=== PATIENT | male | born 1950 | race African-American/Black ===

== ENCOUNTER 2017-01-02 20:21 | Emergency (ER) | payer MEDICARE ==
[~2017-01-02] VITALS: Ht 180.3 cm; Wt 90.7 kg
[~2017-01-02 20:21] MED LIST: AMLO10TA2 PO; ASPI-252 PO; CARV25TA2 PO; DIVA250T4 PO; ENAL25PO MC; ENAL5TAB PO; FURO40TA4 PO; HYDR-2869 PO; Hydralazine Hcl PO; Hydrocodone/Acetaminophen PO; INSU100C SQ; INSU100I11 SQ; INSU100I13 SQ; INSU100I27 SQ; INSU100V8 SQ; LIPITOR80 MG PO; LISI-334 PO
--- NOTE | 2017-01-02 20:50 | PHYS DOC ---
Past Medical History Past Medical History: CAD, CVA, Diabetes-Type II, Hypertension Past Surgical History: Other Additional Past Surgical Histo: TOE AMPUTATION LEFT FOOT Alcohol Use: None Drug Use: None Adult General Chief Complaint Chief Complaint: CATHETER CHANGE HPI HPI 66-year-old male dialysis patient presents secondary to concern over the dialysis catheter in his left upper chest. Apparently during dialysis they thought the catheter was loose and they sent him here to have the catheter removed. Patient denies any pain around the catheter site or any other issues with the catheter. He's states it is not been bleeding around the catheter. [] Review of Systems Review of Systems Constitutional: Denies fever or chills [] Eyes: Denies change in visual acuity, redness, or eye pain [] HENT: Denies nasal congestion or sore throat [] Respiratory: Denies cough or shortness of breath [] Cardiovascular: No additional information not addressed in HPI [] GI: Denies abdominal pain, nausea, vomiting, bloody stools or diarrhea [] : Denies dysuria or hematuria [] Musculoskeletal: Denies back pain or joint pain [] Integument: Denies rash or skin lesions [] Neurologic: Denies headache, focal weakness or sensory changes [] Endocrine: Denies polyuria or polydipsia [] Allergies Allergies Allergies Coded Allergies Type Severity Reaction Last Updated Verified No Known Drug Allergies 12/06/15 No Physical Exam Physical Exam Constitutional: Well developed, well nourished, no acute distress, non-toxic appearance. [] HENT: Normocephalic, atraumatic, bilateral external ears normal, oropharynx moist, no oral exudates, nose normal. [] Eyes: PERRLA, EOMI, conjunctiva normal, no discharge. [] Neck: Normal range of motion, no tenderness, supple, no stridor. [] Cardiovascular:Heart rate regular rhythm, no murmur [] Lungs & Thorax: Bilateral breath sounds clear to auscultation [] Abdomen: Bowel sounds normal, soft, no tenderness, no masses, no pulsatile masses. [] Skin: Dialysis catheter left upper chest with no surrounding erythema fullness or tenderness. The catheter appears to be well seated in the skin. [] Back: No tenderness, no CVA tenderness. [] Extremities: No tenderness, no cyanosis, no clubbing, ROM intact, no edema. [] Neurologic: Alert and oriented X 3, normal motor function, normal sensory function, no focal deficits noted. [] Psychologic: Affect normal, judgement normal, mood normal. [] Current Patient Data Vital Signs Vital Signs Date Time Temp Pulse Resp B/P Pulse Ox O2 Delivery O2 Flow Rate FiO2 01/02/17 21:15 80 18 163/72 98 Room Air 01/02/17 20:40 98.8 98.8 EKG EKG [] Radiology/Procedures Radiology/Procedures [] Course & Med Decision Making Course & Med Decision Making Pertinent Labs and Imaging studies reviewed. (See chart for details) [ED course: Evaluation reveals 66-year-old male with a catheter in his left upper chest. This catheter did not appear to be loose in any way or need to be immediately removed.] Dragon Disclaimer Dragon Disclaimer This electronic medical record was generated, in whole or in part, using a voice recognition dictation system. Departure Departure Impression: Primary Impression: Complications, dialysis, catheter, mechanical Disposition: 01 HOME, SELF-CARE Condition: STABLE Referrals: NIKKY OL (PCP) Patient Instructions: Central Line Placement, Dialysis Access, Instructions Additional Instructions: Follow with your weight inspector this week for recheck. Return to the emergency department should she develop any bleeding around the catheter site or redness tenderness or purulent drainage. Problem Qualifiers Primary Impression: Complications, dialysis, catheter, mechanical Encounter type: initial encounter Qualified Code: T82.49XA - Other complication of vascular dialysis catheter, initial encounter KASEY SOUZA DO Jan 02, 2017 20:50
[2017-01-02 21:15] VITALS: BP 163/72
--- NOTE | 2017-01-03 07:53 | RAD ---
Indication: Dialysis catheter. Technique: Upright portable chest radiograph was obtained. Comparison is from January 21, 2016. Findings: Dialysis catheter placed via left IJ approach is noted. No pneumothorax is apparent. The lungs are clear. The heart is not enlarged. There is no heart failure. Bony structures are intact. Impression: Dialysis catheter placed via left IJ approach is in position.
== END 2017-01-02 21:25 | disposition home or self-care (01) ==
LOC: ER 20:21
DX: T82.49XA Other complication of vascular dialysis catheter, initial encounter (principal); I25.10 Atherosclerotic heart disease of native coronary artery without angina pectoris; E11.9 Type 2 diabetes mellitus without complications; I10 Essential (primary) hypertension; Z86.73 Personal history of transient ischemic attack (TIA), and cerebral infarction without residual deficits; Z99.2 Dependence on renal dialysis; Y84.6 Urinary catheterization as the cause of abnormal reaction of the patient, or of later complication, without mention of misadventure at the time of the procedure; Y92.89 Other specified places as the place of occurrence of the external cause
CPT/HCPCS: 71010; 99283

== ENCOUNTER 2017-03-15 00:06 | Emergency (ER) | payer MEDICARE ==
[2017-03-15] MEDS ORDERED: NALOXONE 0.4 MG/ML VIAL. ONE (00:55)
[2017-03-15 01:01] LABS: BASO % 1 % (0-3); EOS % 4 % (0-3); HEMATOCRIT 31.4 % (39.0-53.0); HEMOGLOBIN 10.1 g/dL (13.0-17.5); LYMPH # 0.8 x10^3/uL (1.0-4.8); LYMPH % 13 % (24-48); MEAN CORPUSCULAR HEMOGLOBIN 30 pg (25-35); MEAN CORPUSCULAR HGB CONC 32 g/dL (31-37); MEAN CORPUSCULAR VOLUME 93 fL (79-100); MONO % 9 % (0-9); NEUT % 73 % (31-73); PLATELET COUNT 201 x10^3/uL (140-400); RED CELL DISTRIBUTION WIDTH 15.5 % (11.5-14.5); WHITE BLOOD COUNT 6.3 x10^3/uL (4.0-11.0)
[2017-03-15 01:08] LABS: CALCIUM 8.4 mg/dL (8.5-10.1); CREATININE 5.5 mg/dL (0.7-1.3); GFR 12.6; POTASSIUM 3.5 mmol/L (3.5-5.1)
[2017-03-15 01:14] LABS: ALBUMIN/GLOBULIN RATIO 0.7 (1.0-1.7); TOTAL BILIRUBIN 0.3 mg/dL (0.2-1.0); TOTAL PROTEIN 7.2 g/dL (6.4-8.2)
[2017-03-15] MEDS ORDERED: NALOXONE 0.4 MG/ML VIAL. IV ONE (01:15)
[2017-03-15 02:30] VITALS: BP 117/56
--- NOTE | 2017-03-15 02:43 | PHYS DOC ---
Past Medical History Past Medical History: CAD, CVA, Diabetes-Type II, Hypertension, Renal Disease Past Surgical History: Other Additional Past Surgical Histo: TOE AMPUTATION LEFT FOOT, Left chest dialysis shunt, L AV fistula Alcohol Use: None Drug Use: None Adult General Chief Complaint Chief Complaint: HYPOGLYCEMIA HPI HPI Patient is a 67 year old gentleman with a history significant for end-stage renal disease, hypertension, diabetes who presents here today secondary to hypoglycemia. Patient does take insulin at home. Patient's blood sugar was 16. EMS was called by his girlfriend. Upon arrival EMS gave him one amp of D50 and his blood sugar went up to 70. Patient was given a second amp of D50 and his blood sugar went to 170. Upon arrival to ER patient is somewhat somnolent however he is alert awake and oriented 3 and is eating in the ER. Patient is currently without any complaints. Patient reports she's been eating and drinking well. Patient denies any fevers shakes chills nausea vomiting diarrhea chest pain shortness of breath cough cold runny nose. Patient reports she's been compliant with medications. Patient denies any change in his insulin doses. Patient thinks she might have given himself extra insulin today by accident. Patient's physical examination ER is unremarkable. He is alert awake and oriented 3. He is eating applesauce, a sandwich, and chips as well as drinking liquids without any difficulty. Patient's ER course was significant for following his blood sugar and giving him oral intake to supplement his blood sugar. Patient's but she remained stable in the ER. He was monitored here for several hours and was discharged home in stable condition and instructed to hold off taking any further insulin for the next 8-12 hours until he is reevaluated by his primary care physician. Review of Systems Review of Systems Constitutional: Denies fever or chills [] Eyes: Denies change in visual acuity, redness, or eye pain [] All other review systems are negative except as documented in history of present illness portion. Current Medications Current Medications Current Medications Medications (Trade) Dose Ordered Sig/Wilder Start Time Stop Time Status Last Admin Dose Admin Naloxone HCl (Narcan) 0.4 mg 1X ONCE 03/15/17 01:15 03/15/17 01:16 DC 03/15/17 01:00 0.4 MG Allergies Allergies Allergies Coded Allergies Type Severity Reaction Last Updated Verified No Known Drug Allergies 12/06/15 No Physical Exam Physical Exam Constitutional: Well developed, well nourished, no acute distress, non-toxic appearance. [] HENT: Normocephalic, atraumatic, bilateral external ears normal, oropharynx moist, no oral e Eyes: PERRLA, EOMI, conjunctiva normal, no discharge. [] Neck: Normal range of motion, no tenderness, supple, no stridor. [] Cardiovascular:Heart rate regular rhythm, Lungs & Thorax: Bilateral breath sounds clear to auscultation [] Abdomen: Bowel sounds normal, soft, no tenderness, no masses, Skin: Warm, dry, no erythema Back: No tenderness, no CVA tenderness. [] Extremities: No tenderness, no cyanosis, no clubbing, ROM intact, no edema. [] Neurologic: Alert and oriented X 3, normal motor function, normal sensory function, no focal deficits noted. [] Psychologic: Affect normal, judgement normal, mood normal. [] Current Patient Data Vital Signs Vital Signs Date Time Temp Pulse Resp B/P Pulse Ox O2 Delivery O2 Flow Rate FiO2 03/15/17 02:30 58 16 117/56 96 Room Air 03/15/17 00:18 97.5 97.5 Lab Values Laboratory Tests Test 03/15/17 00:40 03/15/17 00:45 03/15/17 01:25 03/15/17 02:23 White Blood Count 6.3x10^3/uL (4.0-11.0) Red Blood Count 3.40x10^6/uL (4.30-5.70) L Hemoglobin 10.1g/dL (13.0-17.5) L Hematocrit 31.4% (39.0-53.0) L Mean Corpuscular Volume 93fL (79-100) Mean Corpuscular Hemoglobin 30pg (25-35) Mean Corpuscular Hemoglobin Concent 32g/dL (31-37) Red Cell Distribution Width 15.5% (11.5-14.5) H Platelet Count 201x10^3/uL (140-400) Neutrophils (%) (Auto) 73% (31-73) Lymphocytes (%) (Auto) 13% (24-48) L Monocytes (%) (Auto) 9% (0-9) Eosinophils (%) (Auto) 4% (0-3) H Basophils (%) (Auto) 1% (0-3) Neutrophils # (Auto) 4.6x10^3uL (1.8-7.7) Lymphocytes # (Auto) 0.8x10^3/uL (1.0-4.8) L Monocytes # (Auto) 0.6x10^3/uL (0.0-1.1) Eosinophils # (Auto) 0.3x10^3/uL (0.0-0.7) Basophils # (Auto) 0.0x10^3/uL (0.0-0.2) Sodium Level 138mmol/L (136-145) Potassium Level 3.5mmol/L (3.5-5.1) Chloride Level 104mmol/L (98-107) Carbon Dioxide Level 24mmol/L (21-32) Anion Gap 10 (6-14) Blood Urea Nitrogen 21mg/dL (8-26) Creatinine 5.5mg/dL (0.7-1.3) H Estimated GFR (Cockcroft-Gault) 12.6 BUN/Creatinine Ratio 4 (6-20) L Glucose Level 109mg/dL (70-99) H Calcium Level 8.4mg/dL (8.5-10.1) L Total Bilirubin 0.3mg/dL (0.2-1.0) Aspartate Amino Transferase (AST) 23U/L (15-37) Alanine Aminotransferase (ALT) 23U/L (16-63) Alkaline Phosphatase 86U/L (46-116) Total Protein 7.2g/dL (6.4-8.2) Albumin 3.0g/dL (3.4-5.0) L Albumin/Globulin Ratio 0.7 (1.0-1.7) L Glucose (Fingerstick) 106mg/dL (70-99) H 109mg/dL (70-99) H 135mg/dL (70-99) H Laboratory Tests 03/15/17 00:40 Laboratory Tests 03/15/17 00:40 EKG EKG [] Radiology/Procedures Radiology/Procedures [] Course & Med Decision Making Course & Med Decision Making Pertinent Labs and Imaging studies reviewed. (See chart for details) [] Dragon Disclaimer Dragon Disclaimer This electronic medical record was generated, in whole or in part, using a voice recognition dictation system. Departure Departure Impression: Primary Impression: Hypoglycemia Additional Impression: Chronic renal failure Disposition: HOME, SELF-CARE Condition: IMPROVED Referrals: NIKKY LO (PCP) Patient Instructions: Hypoglycemia (Low Blood Sugar) Additional Instructions: Hold your insulin dose for the next 8 hours. Resume his usual dose after 8 hours. Problem Qualifiers GERARD FRANCOIS MD Mar 15, 2017 02:43
== END 2017-03-15 03:00 | disposition home or self-care (01) ==
LOC: ER 00:06
DX: E11.649 Type 2 diabetes mellitus with hypoglycemia without coma (principal); E11.22 Type 2 diabetes mellitus with diabetic chronic kidney disease; I12.0 Hypertensive chronic kidney disease with stage 5 chronic kidney disease or end stage renal disease; N18.6 End stage renal disease; I25.10 Atherosclerotic heart disease of native coronary artery without angina pectoris; Z89.422 Acquired absence of other left toe(s); Z86.73 Personal history of transient ischemic attack (TIA), and cerebral infarction without residual deficits; Z79.4 Long term (current) use of insulin
CPT/HCPCS: 36415; 80053; 82947; 85027; 96374; 99284; J2310

== ENCOUNTER 2017-05-30 22:18 | Emergency (ER) | payer MEDICARE ==
[~2017-05-30] VITALS: Ht 180.3 cm; Wt 115.7 kg
[2017-05-30 22:57] VITALS: BP 104/56
--- NOTE | 2017-05-30 22:58 | PHYS DOC ---
Past Medical History Past Medical History: CAD, CVA, Diabetes-Type II, Hypertension, Renal Disease Past Surgical History: Other Additional Past Surgical Histo: TOE AMPUTATION LEFT FOOT, Left chest dialysis shunt, L AV fistula Alcohol Use: None Drug Use: None Adult General Chief Complaint Chief Complaint: HYPERGLYCEMIA HPI HPI Patient is a 67 year old male who presents with hyperglycemia. The patient reports blood glucose of 500 at home. He has history of diabetes for which she takes NovoLog and Lantus, reports compliance with medications. In fact after having elevated blood glucose at home he took 13 units of NovoLog and 10 units of Lantus. He states his blood glucoses moderately well controlled, usually less than 200. Today after dialysis he stopped to eat honey buns and when he arrived home his glucose was significantly elevated. He reports increased thirst, makes minimal urine & hasn't noticed increased urine output or frequency. He denies fevers/chills, chest pain, shortness of breath, abdominal pain, vomiting, diarrhea. Compliant with dialysis. PCP is Dr. Santa. Review of Systems Review of Systems Constitutional: Denies fever or chills Eyes: Denies change in visual acuity HENT: Denies nasal congestion or sore throat Respiratory: Denies cough or shortness of breath Cardiovascular: Denies chest pain or edema GI: Denies abdominal pain, nausea, vomiting, bloody stools or diarrhea : Denies dysuria or hematuria Musculoskeletal: Denies back pain or joint pain Integument: Denies rash or skin lesions Neurologic: Denies headache, focal weakness or sensory changes Current Medications Current Medications Current Medications Medications (Trade) Dose Ordered Sig/Wilder Start Time Stop Time Status Last Admin Dose Admin Sodium Chloride 250 ml @ 250 mls/hr 1X ONCE 05/30/17 23:00 05/30/17 23:59 DC 05/30/17 23:00 250 MLS/HR Allergies Allergies Allergies Coded Allergies Type Severity Reaction Last Updated Verified No Known Drug Allergies 12/06/15 No Physical Exam Physical Exam Constitutional: Obese, no acute distress, non-toxic appearance. HENT: Normocephalic, atraumatic, bilateral external ears normal, oropharynx moist, nose normal. Eyes: PERRLA, EOMI, conjunctiva normal, no discharge. Neck: supple, no stridor. Cardiovascular: RRR, no murmurs, no edema. Lungs & Thorax: LCTAB, no wheezing, no respiratory distress. Abdomen: soft, nontender, nondistended. Skin: Warm, dry, no erythema, no rash. Back: No tenderness. Extremities: No tenderness, no edema. Neurologic: Alert and oriented X 3, no focal deficits noted. Psychologic: Affect normal, judgement normal, mood normal. Current Patient Data Vital Signs Vital Signs Date Time Temp Pulse Resp B/P (MAP) Pulse Ox O2 Delivery O2 Flow Rate FiO2 05/30/17 22:57 82 20 104/56 (72) 05/30/17 22:31 98.6 97 Room Air 98.6 Lab Values Laboratory Tests Test 05/30/17 22:25 05/30/17 23:36 05/30/17 23:45 05/31/17 00:24 Glucose (Fingerstick) 425 mg/dL (70-99) H 288 mg/dL (70-99) H 263 mg/dL (70-99) H White Blood Count 6.3 x10^3/uL (4.0-11.0) Red Blood Count 3.52 x10^6/uL (4.30-5.70) L Hemoglobin 10.5 g/dL (13.0-17.5) L Hematocrit 32.3 % (39.0-53.0) L Mean Corpuscular Volume 92 fL (79-100) Mean Corpuscular Hemoglobin 30 pg (25-35) Mean Corpuscular Hemoglobin Concent 33 g/dL (31-37) Red Cell Distribution Width 16.2 % (11.5-14.5) H Platelet Count 208 x10^3/uL (140-400) Neutrophils (%) (Auto) 59 % (31-73) Lymphocytes (%) (Auto) 24 % (24-48) Monocytes (%) (Auto) 11 % (0-9) H Eosinophils (%) (Auto) 6 % (0-3) H Basophils (%) (Auto) 0 % (0-3) Neutrophils # (Auto) 3.7 x10^3uL (1.8-7.7) Lymphocytes # (Auto) 1.5 x10^3/uL (1.0-4.8) Monocytes # (Auto) 0.7 x10^3/uL (0.0-1.1) Eosinophils # (Auto) 0.4 x10^3/uL (0.0-0.7) Basophils # (Auto) 0.0 x10^3/uL (0.0-0.2) Segmented Neutrophils % 59 % (35-66) Band Neutrophils % 2 % (0-9) Lymphocytes % 23 % (24-48) L Monocytes % 5 % (0-10) Eosinophils % 11 % (0-5) H Platelet Estimate Adequate (ADEQUATE) Polychromasia Slight Anisocytosis Slight Sodium Level 136 mmol/L (136-145) Potassium Level 4.0 mmol/L (3.5-5.1) Chloride Level 98 mmol/L (98-107) Carbon Dioxide Level 32 mmol/L (21-32) Anion Gap 6 (6-14) Blood Urea Nitrogen 21 mg/dL (8-26) Creatinine 4.6 mg/dL (0.7-1.3) H Estimated GFR (Cockcroft-Gault) 15.5 BUN/Creatinine Ratio 5 (6-20) L Glucose Level 328 mg/dL (70-99) H Calcium Level 8.9 mg/dL (8.5-10.1) Total Bilirubin 0.2 mg/dL (0.2-1.0) Aspartate Amino Transferase (AST) 19 U/L (15-37) Alanine Aminotransferase (ALT) 18 U/L (16-63) Alkaline Phosphatase 128 U/L (46-116) H Troponin I Quantitative < 0.017 ng/mL (0.000-0.055) Total Protein 7.2 g/dL (6.4-8.2) Albumin 3.1 g/dL (3.4-5.0) L Albumin/Globulin Ratio 0.8 (1.0-1.7) L Laboratory Tests 05/30/17 23:36 Laboratory Tests 05/30/17 23:36 EKG EKG interpreted by me: NSR rate 81, no acute ST/T wave changes, Q waves in leads V1 -V3, normal intervals, no ectopy.[] Radiology/Procedures Radiology/Procedures CXR: interpreted by me: cardiomegaly, no infiltrate, no pneumothorax, no acute process.[] Course & Med Decision Making Course & Med Decision Making Pertinent Labs and Imaging studies reviewed. (See chart for details) The patient presents with hyperglycemia. Blood glucose rechecked several times over his visit, trending down from 425 to 263, had just received novolog & lantus prior to presentation. He had low normal blood pressure & hyperglycemia upon arrival, gave gentle 250 ml bolus but no other interventions. No evidence of serious process contributing to hyperglycemia. He had no complaints & was comfortable with discharge home. No insulin given as trending down & he has previous visits for hypoglycemia. Recommend continue frequent accuchecks & administer sliding scale insulin, follow up with PCP in 2-3 days. Come back for severe chest pain or shortness of breath, abdominal pain, uncontrolled vomiting, focal neuro deficit, any otherwise worsening condition. Discharged home in stable condition. [] Dragon Disclaimer Dragon Disclaimer This electronic medical record was generated, in whole or in part, using a voice recognition dictation system. Departure Departure Impression: Primary Impression: Hyperglycemia Disposition: HOME, SELF-CARE Condition: STABLE Referrals: NO PCP (PCP) Patient Instructions: Hyperglycemia, [id number] Additional Instructions: You were seen in the emergency department today for high blood glucose. There were no other serious findings identified. Please continue to check glucose at home & follow sliding scale. Follow up with primary care doctor in 2-3 days. Come back for severe chest pain or shortness of breath, uncontrolled vomiting, any otherwise worsening condition. MANDO KING MD May 30, 2017 22:58
[2017-05-30] MEDS ORDERED: IV NORMAL SALINE 250ML 250 ML IV ONE (23:00)
[2017-05-30 23:47] LABS: BASO % 0 % (0-3); EOS % 6 % (0-3); HEMATOCRIT 32.3 % (39.0-53.0); HEMOGLOBIN 10.5 g/dL (13.0-17.5); LYMPH # 1.5 x10^3/uL (1.0-4.8); LYMPH % 24 % (24-48); MEAN CORPUSCULAR HEMOGLOBIN 30 pg (25-35); MEAN CORPUSCULAR HGB CONC 33 g/dL (31-37); MEAN CORPUSCULAR VOLUME 92 fL (79-100); MONO % 11 % (0-9); NEUT % 59 % (31-73); PLATELET COUNT 208 x10^3/uL (140-400); RED BLOOD COUNT 3.52 x10^6/uL (4.30-5.70); RED CELL DISTRIBUTION WIDTH 16.2 % (11.5-14.5); WHITE BLOOD COUNT 6.3 x10^3/uL (4.0-11.0)
[2017-05-31 00:02] LABS: CALCIUM 8.9 mg/dL (8.5-10.1); CREATININE 4.6 mg/dL (0.7-1.3); GFR 15.5
[2017-05-31 00:11] LABS: ALBUMIN 3.1 g/dL (3.4-5.0); ALBUMIN/GLOBULIN RATIO 0.8 (1.0-1.7); TOTAL BILIRUBIN 0.2 mg/dL (0.2-1.0); TOTAL PROTEIN 7.2 g/dL (6.4-8.2)
[2017-05-31 00:22] LABS: % EOS 11 % (0-5)
[2017-05-31 00:23] LABS: ANISOCYTOSIS SLIGHT; PLT ESTIMATE ADEQUATE (ADEQUATE); POLYCHROMASIA SLIGHT
--- NOTE | 2017-05-31 06:42 | EKG ---
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
--- NOTE | 2017-05-31 07:31 | RAD ---
Portable AP upright view CXR: Clinical indications: Hyperglycemia. Comparison: January 02, 2017. Findings: No acute lung infiltrate or pleural effusion or pulmonary edema or lung mass or pneumothorax is seen. The heart size, pulmonary vasculature, mediastinum and both mary are unremarkable. Left IJ central line is unchanged in position. Impression: No acute radiographic abnormality is seen.
== END 2017-05-31 00:32 | disposition home or self-care (01) ==
LOC: ER 22:18
DX: E11.65 Type 2 diabetes mellitus with hyperglycemia (principal); I12.9 Hypertensive chronic kidney disease with stage 1 through stage 4 chronic kidney disease, or unspecified chronic kidney disease; E11.22 Type 2 diabetes mellitus with diabetic chronic kidney disease; N18.9 Chronic kidney disease, unspecified; I25.10 Atherosclerotic heart disease of native coronary artery without angina pectoris; Z79.4 Long term (current) use of insulin; Z86.73 Personal history of transient ischemic attack (TIA), and cerebral infarction without residual deficits; Z99.2 Dependence on renal dialysis; Z89.432 Acquired absence of left foot
CPT/HCPCS: 36415; 71010; 80053; 82962; 84484; 85007; 85027; 93005; 96360; 99285; J7050; J7030

== ENCOUNTER 2018-01-15 17:01 | Emergency (ER) | payer MEDICARE ==
[2018-01-15 18:54] LABS: ADD MAN DIFF? NO
[2018-01-15 19:01] LABS: BASO # 0.1 x10^3/uL (0.0-0.2); BASO % 2 % (0-3); EOS % 16 % (0-3); HEMATOCRIT 25.9 % (39.0-53.0); HEMOGLOBIN 8.7 g/dL (13.0-17.5); LYMPH # 1.1 x10^3/uL (1.0-4.8); LYMPH % 17 % (24-48); MEAN CORPUSCULAR HEMOGLOBIN 32 pg (25-35); MEAN CORPUSCULAR HGB CONC 34 g/dL (31-37); MEAN CORPUSCULAR VOLUME 94 fL (79-100); MONO # 0.4 x10^3/uL (0.0-1.1); MONO % 6 % (0-9); NEUT # 3.9 x10^3uL (1.8-7.7); NEUT % 60 % (31-73); PLATELET COUNT 238 x10^3/uL (140-400); RED BLOOD COUNT 2.76 x10^6/uL (4.30-5.70); RED CELL DISTRIBUTION WIDTH 14.9 % (11.5-14.5); WHITE BLOOD COUNT 6.5 x10^3/uL (4.0-11.0)
[2018-01-15] MEDS: HYDROcodone/APAP 5/325MG 1 TAB TABLET PO ×2 (19:08)
[2018-01-15] MEDS: diazePAM 5 MG TABLET PO ×2 (19:08)
[2018-01-15 19:11] LABS: ANION GAP 15 (6-14); BLOOD UREA NITROGEN 62 mg/dL (8-26); BUN/CREATININE RATIO 6 (6-20); CALCIUM 8.5 mg/dL (8.5-10.1); CARBON DIOXIDE 22 mmol/L (21-32); CHLORIDE 104 mmol/L (98-107); CREATININE 9.9 mg/dL (0.7-1.3); GFR 6.4; GLUCOSE 196 mg/dL (70-99); POTASSIUM 4.4 mmol/L (3.5-5.1); SODIUM 141 mmol/L (136-145)
[2018-01-15 19:18] LABS: ALBUMIN 3.3 g/dL (3.4-5.0); ALBUMIN/GLOBULIN RATIO 0.8 (1.0-1.7); ALK PHOS 93 U/L (46-116); ALT (SGPT) 14 U/L (16-63); AST (SGOT) 33 U/L (15-37); CREATINE KINASE 619 U/L (39-308); TOTAL BILIRUBIN 0.2 mg/dL (0.2-1.0); TOTAL PROTEIN 7.3 g/dL (6.4-8.2)
[2018-01-15 19:25] LABS: NT-PRO BNP 4866 pg/mL (0-124)
== END 2018-01-15 20:30 | disposition home or self-care (01) ==
LOC: ER 17:01
DX: L89.629 Pressure ulcer of left heel, unspecified stage (principal); L89.619 Pressure ulcer of right heel, unspecified stage; E11.621 Type 2 diabetes mellitus with foot ulcer; I12.0 Hypertensive chronic kidney disease with stage 5 chronic kidney disease or end stage renal disease; E11.22 Type 2 diabetes mellitus with diabetic chronic kidney disease; N18.6 End stage renal disease; I25.10 Atherosclerotic heart disease of native coronary artery without angina pectoris; Z86.73 Personal history of transient ischemic attack (TIA), and cerebral infarction without residual deficits; Z89.422 Acquired absence of other left toe(s); Z99.2 Dependence on renal dialysis
CPT/HCPCS: 36415; 80053; 82550; 83735; 83880; 84484; 85025; 93005; 99285-25